=== PATIENT | male | born 1965 | race African-American/Black ===

== ENCOUNTER 2016-11-20 19:19 | Emergency (ER) | payer MEDICARE ==
[2016-11-20 20:51] LABS: BASOPHIL 0.2 % (0-2); EOSINOPHIL 0.7 % (0-5); HCT 37.4 % (42.0-52.0); HGB 12.3 g/dl (13.2-18.0); LYMPHOCYTE 19.3 % (15-48); MCH 27.2 pg (25.0-31.0); MCHC 32.9 g/dL (32.0-36.0); MCV 82.7 fL (78.0-100.0); MONOCYTE 9.8 % (0-12); MPV 9.9 fL (6.0-9.5); PLT 316 K/uL (150-400); RBC 4.52 M/uL (4.70-6.00); RDW 16.6 % (11.5-14.0); WBC 9.6 K/uL (4.0-10.5)
[2016-11-20 20:52] LABS: INR 1.29 (0.9-1.2); PROTHROMBIN TIME 15.6 SECONDS (11.7-14.0); PTT 28.4 SECONDS (23.2-31.4)
[2016-11-20 21:05] LABS: ALBUMIN 4.2 g/dL (3.5-5.0); BILIRUBIN - TOTAL 0.8 mg/dL (0.1-1.0); CKMB 3.55 ng/mL (0.97-4.94); CREATININE 1.2 mg/dL (0.7-1.2); GLOBULIN (CALCULATION) 3.1 g/dL (2.2-4.2); MAGNESIUM 1.59 mg/dL (1.40-2.10); POTASSIUM 3.3 mmol/L (3.5-5.1); TOTAL PROTEIN 7.3 g/dL (6.4-8.3); TROPONIN T 0.013 ng/mL
== END 2016-11-21 00:08 | disposition home or self-care (01) ==
LOC: FER 19:19
PROVIDERS: Emergency Medicine Emergency Medical Services
DX: I11.0 Hypertensive heart disease with heart failure (principal); I25.2 Old myocardial infarction; E11.9 Type 2 diabetes mellitus without complications; Z79.82 Long term (current) use of aspirin; Z79.4 Long term (current) use of insulin; Z79.84 Long term (current) use of oral hypoglycemic drugs; Z79.899 Other long term (current) drug therapy; Z95.0 Presence of cardiac pacemaker; Z95.1 Presence of aortocoronary bypass graft
CPT/HCPCS: 36415; 71010; 71275; 80053; 82550; 82553; 83735; 83874; 83880; 84484; 85025; 85379; 85610; 85730; 93005; J1940; J2405; Q9967